=== PATIENT | male | born 1975 | race Caucasian/White ===

== ENCOUNTER 2022-07-08 18:46 | Emergency (ER) | payer OTHER ==
[~2022-07-08] VITALS: Ht 182.9 cm; Wt 73.0 kg
[2022-07-08] MEDS ORDERED: TRAZODONE HCL100 MG PO (21:49)
[2022-07-08 22:26] VITALS: BP 114/82
== END 2022-07-08 22:26 | disposition home or self-care (01) ==
LOC: ED 18:46
DX: S01.81XA Laceration without foreign body of other part of head, initial encounter (principal); W22.8XXA Striking against or struck by other objects, initial encounter; Y93.19 Activity, other involving water and watercraft; Z79.899 Other long term (current) drug therapy; Z23 Encounter for immunization
CPT/HCPCS: 12011; 90471; 90715; 99282-25